=== PATIENT | female | born 1990 ===

== ENCOUNTER → 2020-03-05 | Outpatient (CLI) | payer OTHER | LOC: LAB 14:45 | PROVIDERS: ATTEND Nurse Practitioner | DX: U07.1 COVID-19 (principal) ==

== ENCOUNTER → 2020-03-29 | Outpatient (CLI) | payer OTHER | LOC: LAB 12:58 | PROVIDERS: ATTEND Nurse Practitioner | DX: U07.1 COVID-19 (principal) ==